=== PATIENT | male | born 1990 | race Caucasian/White ===

== ENCOUNTER 2019-12-01 13:24 | Inpatient (IN) | payer MEDICAID, OTHER ==
[~2019-12-01] VITALS: Ht 182.9 cm; Wt 52.5 kg
[~2019-12-01 13:24] MED LIST: ALBU17IN INH; AVEL1TAB3 PO; COMBAER6 INH; MENSTAB10 PO; PRAZ2CAP PO; SERO1TAB OR; SERO200T PO; VITATAB11 PO; ZOLO50TA OR; [UNRECOGNIZED DRUG - OTHER] PO
[2019-12-01] MEDS ORDERED: SUBO8MIS SL ×2 (13:53→17:33)
[2019-12-01 15:13] LABS: HEMATOCRIT 41.7 % (42.0-52.0); HEMOGLOBIN 13.5 g/dl (13.5-17.5); MEAN CORPUSCULAR HEMOGLOBIN 27.8 pg (27.0-33.0); MEAN CORPUSCULAR HGB CONC 32.4 g/dl (32.0-36.5); MEAN CORPUSCULAR VOLUME 85.8 fl (80.0-96.0); PLATELET COUNT, AUTOMATED 234 10^3/uL (150-450); RED BLOOD COUNT 4.86 10^6/uL (4.30-6.10)
[2019-12-01 15:40] LABS: AMPHETAMINES LEVEL URINE POSITIVE (NEGATIVE); BARBITURATES URINE NEGATIVE (NEGATIVE); BENZODIAZEPINES URINE NEGATIVE (NEGATIVE); CANNABINOIDS URINE POSITIVE (NEGATIVE); COCAINE METABOLITE URINE NEGATIVE (NEGATIVE); METHADONE URINE NEGATIVE (NEGATIVE); OPIATES URINE NEGATIVE (NEGATIVE); PHENCYCLIDINE URINE NEGATIVE (NEGATIVE)
[2019-12-01 15:49] LABS: ACETAMINOPHEN LEVEL < 2.0 UG/ML (10.0-30.0); ALBUMIN 4.3 GM/DL (3.2-5.2); ALT/SGPT 21 U/L (12-78); BILIRUBIN,DIRECT 0.4 MG/DL (0.0-0.2); BILIRUBIN,TOTAL 1.4 MG/DL (0.2-1.0); BLOOD UREA NITROGEN 21 MG/DL (7-18); CALCIUM LEVEL 9.2 MG/DL (8.5-10.1); CARBON DIOXIDE LEVEL 32 MEQ/L (21-32); CHLORIDE LEVEL 103 MEQ/L (98-107); CREATININE FOR GFR 1.01 MG/DL (0.70-1.30); ETHYL ALCOHOL (ETHANOL) < 0.003 % (0.000-0.010); GLOMERULAR FILTRATION RATE > 60.0 (>60); GLUCOSE, FASTING 134 MG/DL (70-100); POTASSIUM SERUM 4.2 MEQ/L (3.5-5.1); SALICYLATE LEVEL < 1.7 MG/DL (5.0-30.0); SODIUM LEVEL 139 MEQ/L (136-145); THYROID STIMULATING HORMONE 0.187 uIU/ML (0.358-3.740); TOTAL PROTEIN 7.8 GM/DL (6.4-8.2)
[2019-12-01] MEDS ORDERED: OLANZapine 5 MG TAB PO PRN (18:15)
[2019-12-01] MEDS ORDERED: QUEtiapine FUMARATE 50 MG TAB PO PRN (18:15)
[2019-12-01] MEDS ORDERED: MAALOX 30 ML SUSP *UDC PO PRN (18:15)
[2019-12-01] MEDS ORDERED: IBUPROFEN 400 MG TAB PO PRN (18:15)
[2019-12-01] MEDS ORDERED: MOM 30ML SUSPENSION UDC PO PRN (18:15)
[2019-12-01 20:26] VITALS: BP 108/58
[2019-12-01] MEDS: BUPRENORPHINE/NALOXONE 2-0.5MG SUBLINGUAL TABLET(SUBOXONE) SL SCH (21:00)
[2019-12-02 06:12] VITALS: BP 105/55
[2019-12-02] MEDS: BUPRENORPHINE/NALOXONE 8-2MG SUBLINGUAL TABLET(SUBOXONE) SL SCH (09:07)
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
[2019-12-02 16:24] VITALS: BP 95/51
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
[2019-12-02] MEDS: BUPRENORPHINE/NALOXONE 2-0.5MG SUBLINGUAL TABLET(SUBOXONE) SL SCH (20:15)
[2019-12-02] MEDS ORDERED: RAMELTEON 8 MG TAB (ROZEREM) PO SCH (21:00)
[2019-12-03 06:51] VITALS: BP 97/46
[2019-12-03] MEDS: BUPRENORPHINE/NALOXONE 8-2MG SUBLINGUAL TABLET(SUBOXONE) SL SCH (08:02)
[2019-12-03] MEDS ORDERED: SUBO8MIS SL ×3 (11:01→11:25)
[2019-12-03] MEDS ORDERED: SUBO4MIS SL (11:25)
--- NOTE | 2019-12-03 19:36 | MHDSPDOC ---
[facility] Discharge Summary Discharge Summary DATE OF ADMISSION: Dec 01, 2019 at 18:03 DATE OF DISCHARGE: Dec 03, 2019 at 14:10 Discharge Diagnoses Posttraumatic stress disorder. Stimulant use disorder. Cannabis use disorder. Opioid use disorder, in sustained remission. Other specified personality disorder: Mixed personality features. History of Present Illness Katia De is a 28-year-old man who presented to the ER after the patient's mother called [facility] out of concern for SI in the setting of substance use. On evaluation, Katia states that he was released from longterm in August after serving for 4 years. He has a longstanding and extensive substance use history as well as inpatient and outpatient psychiatric and substance use treatment. His first psychiatric contact was at the age of 13, and his first substance use treatment contact was in his late teens to early 20s. He is currently on Suboxone and has been initiated with [facility] for substance use treatment. He has recently been using cannabis and synthetic amphetamines/soumya. Katia states that it has been difficult adjusting to life outside of longterm, as while in longterm he had to constantly have his "head over my shoulder". He also reported having no work experience and that it has been difficult to find employment given his incarceration history. He also cites psychosocial stressors regarding living with his mother, who has her own psychiatric history. Additional stressors include cannabis and soumya use, which has led to mood dysregulation and paranoia. While Katia endorses chronic, passive SI, he denies making suicidal statements of an active quality to his mother. Consultants Routine medical screening. Treatment and Progress Katia was admitted on a 9.39 legal status. He elected to continue his outpatient medications of Suboxone and melatonin; however, melatonin was not available, so ramelteon was used. He reported improvement of affective symptoms and denied the presence of paranoia and suicidal ideation. He has outpatient follow up with [facility] and [facility], and he reported being ready to engage an outpatient treatment. Discharge Assessment On the day of discharge, Katia denied SI/HI/AVH/delusional thinking. He reported improvement in his symptoms and did not have safety concerns leaving the hospital and engaging in outpatient treatment. Due to relational concerns returning to his mother's house, he elected to coordinate with our project planner to go to [facility] for housing. The patient at the time of discharge did not meet criteria for involuntary admission/extension due to having a normal mental status exam, fair insight into the situation, They are engaged in the discharge process, as well as being friendly and amenable in behavioral control and havent been engaging in any observed concerning behavior or ideation recently. They decline voluntary extension/admission at this time and must be discharged in good dagoberto, as Im unable to make a case for holding the patient against their will. They may have historical risk factors of admissions and other interactions with psychiatry however, those are not modifiable from a clinical perspective. The patient will need to be discharged in good dagoberto. Physical Exam Vitals: See below General appearance: Appears staged age with good hygiene and grooming; dressed in seasonally-appropriate attire MSK: Normal Speech: WNL for rate, volume, fluency, and amount Thought process (logical vs. illogical or disorganized): Linear, organized and goal-directed. Thought content: No SI/HI/AVH/delusional thinking elicited. Judgement: fair Insight: Fair Mood: "good" Affect: Euthymic and reactive. Cognition: Grossly intact. Follow Up Appointments The discharge planners have worked to arrange outpatient follow-up. During the pre-discharge meeting, the patient was evaluated for further issues of lethality in order to address them fully before discharge. They worked on safety planning with the patient's family members to ensure that the patient will have a safe and effective discharge. Time Spent 30 minutes, with greater than 50% of time spent in counseling and coordination of care. Vital Signs/I&Os Vital Signs Date Time Temp Pulse Resp B/P (MAP) Pulse Ox O2 Delivery O2 Flow Rate FiO2 12/03/19 06:51 98.3 67 14 97/46 (63) 99 Room Air Medications Scheduled Buprenorphine HCl/Naloxone HCl (Suboxone 8 mg-2 mg Sl Film) 1 Each Film, 1 STRIP SL DAILY for opioid for 7 Days, #7 Buprenorphine HCl/Naloxone HCl (Suboxone 4 mg-1 mg Sl Film) 1 Each Film, 1 STRIP SL QHS for opioid for 7 Days, #7 Allergies Coded Allergies: Penicillins (Verified Allergy, Severe, hives, throat swelling, 12/01/19) GME ATTESTATION GME ATTESTATION My faculty preceptor for this patient encounter was physically present during the encounter and was fully available. All aspects of the patient interview, examination, medical decision making process, and medical care plan development were reviewed and approved by the faculty preceptor. The faculty preceptor is aware and concurs with the plan as stated in the body of this note and will attest to such by his/her cosignature. RICHARD CASTELLON MD Dec 03, 2019 19:36
== END 2019-12-03 14:10 | disposition home or self-care (01) | DRG 755 ==
LOC: M ED 13:24 → M ED INP 18:03 → M PSY 20:19
PROVIDERS: ADMIT Psychiatry & Neurology Psychiatry; ATTEND Psychiatry & Neurology Addiction Medicine
DX: F43.10 Post-traumatic stress disorder, unspecified (principal); F15.10 Other stimulant abuse, uncomplicated; F12.10 Cannabis abuse, uncomplicated; F10.11 Alcohol abuse, in remission; F17.200 Nicotine dependence, unspecified, uncomplicated; F60.89 Other specific personality disorders; F60.2 Antisocial personality disorder; Z62.810 Personal history of physical and sexual abuse in childhood; Z81.8 Family history of other mental and behavioral disorders; Z91.5 Personal history of self-harm; Z65.2 Problems related to release from prison; Z79.899 Other long term (current) drug therapy; Z88.0 Allergy status to penicillin

== ENCOUNTER 2019-12-14 14:37 | Emergency (ER) | payer MEDICAID, OTHER ==
[~2019-12-14] VITALS: Ht 182.9 cm; Wt 54.5 kg
[~2019-12-14 14:37] MED LIST changes: +SUBO4MIS SL; +SUBO8MIS SL
[2019-12-14 14:38] VITALS: BP 131/89
[2019-12-14 16:05] LABS: BASO # 0.1 10^3/uL (0.0-0.2); BASO % 0.6 % (0.0-1.0); EOS # 0.2 10^3/uL (0.0-0.5); EOS % 2.1 % (0.0-3.0); HEMATOCRIT 39.5 % (42.0-52.0); HEMOGLOBIN 12.8 g/dl (13.5-17.5); LYMPH # 3.5 10^3/uL (1.5-5.0); LYMPH % 30.7 % (24.0-44.0); MEAN CORPUSCULAR HEMOGLOBIN 27.9 pg (27.0-33.0); MEAN CORPUSCULAR HGB CONC 32.4 g/dl (32.0-36.5); MEAN CORPUSCULAR VOLUME 86.1 fl (80.0-96.0); MONO # 0.9 10^3/uL (0.0-0.8); MONO % 7.8 % (0.0-5.0); NEUTROPHILS # 6.7 10^3/uL (1.5-8.5); NEUTROPHILS % 58.5 % (36.0-66.0); PLATELET COUNT, AUTOMATED 257 10^3/uL (150-450); RED BLOOD COUNT 4.59 10^6/uL (4.30-6.10); WHITE BLOOD COUNT 11.5 10^3/uL (4.0-10.0)
[2019-12-14 16:24] LABS: ALT/SGPT 21 U/L (12-78); BILIRUBIN,DIRECT 0.1 MG/DL (0.0-0.2); BILIRUBIN,TOTAL 0.3 MG/DL (0.2-1.0); BLOOD UREA NITROGEN 18 MG/DL (7-18); CALCIUM LEVEL 8.6 MG/DL (8.5-10.1); CARBON DIOXIDE LEVEL 28 MEQ/L (21-32); CHLORIDE LEVEL 106 MEQ/L (98-107); CREATININE FOR GFR 0.97 MG/DL (0.70-1.30); GLOMERULAR FILTRATION RATE > 60.0 (>60); GLUCOSE, FASTING 100 MG/DL (70-100); SODIUM LEVEL 140 MEQ/L (136-145); TOTAL PROTEIN 7.2 GM/DL (6.4-8.2)
[2019-12-14 16:35] LABS: CHLAMYDIA DNA AMPLIFICATION POSITIVE (NEGATIVE); GC DNA AMPLIFICATION POSITIVE (NEGATIVE)
--- NOTE | 2019-12-14 16:36 | REP ---
Clinical: Hematuria. Technique: Axial noncontrast images from the lung bases to the pubic symphysis with coronal and sagittal re-formations. Findings: Liver, spleen, pancreas, gallbladder, bilateral adrenal glands and kidneys are relatively normal for noncontrast evaluation. No perinephric stranding, hydroureteronephrosis, intrarenal calculi are identified. The enteric system is without obstruction or obvious acute inflammatory process. Pelvis demonstrates partially collapsed bladder and age appropriate prostate/seminal vesicles. Multiple small calcifications within the pelvis likely represent phleboliths although distal ureteral calculus cannot definitively be excluded. No ascites. No free air. No obvious adenopathy. Musculoskeletal structures are intact. Lung bases are clear. Impression: 1. Limited examination due to the lack of intravenous contrast and paucity of intra peritoneal fat. 2. No obvious acute abdominopelvic pathology appreciated. 3. Normal appearance the bilateral kidneys without hydronephrosis, perinephric stranding, or nephrolithiasis. 4. Calcifications in the pelvis likely represent phleboliths and less likely distal ureteral calculus. Electronically Signed by Duncan Flannery MD 12/14/2019 04:28 P
[2019-12-14] MEDS ORDERED: AZITHROMYCIN 250MG TABLET PO ONE ×2 (16:45→17:00)
[2019-12-14] MEDS ORDERED: METOCLOPRAMIDE 10 MG TAB PO ONE (17:00)
[2019-12-14] MEDS ORDERED: GENTAMICIN SULF 80MG/2ML VIAL IM ONE (17:00)
== END 2019-12-14 17:21 | disposition home or self-care (01) ==
LOC: M ED 14:37
DX: A56.8 Sexually transmitted chlamydial infection of other sites (principal); A54.09 Other gonococcal infection of lower genitourinary tract; F31.9 Bipolar disorder, unspecified; F43.10 Post-traumatic stress disorder, unspecified; F19.10 Other psychoactive substance abuse, uncomplicated; F17.200 Nicotine dependence, unspecified, uncomplicated; Z88.0 Allergy status to penicillin; Z79.891 Long term (current) use of opiate analgesic
CPT/HCPCS: 74176; 80048; 80076; 81001; 85025; 87086; 87661; 96372; 99282; J1580

== ENCOUNTER → 2020-01-15 | Outpatient (CLI) | payer OTHER ==
[2020-01-15 12:06] LABS: APPEARANCE, URINE CLEAR (CLEAR); BACTERIA, URINE AUTO NEGATIVE (NEGATIVE); BILIRUBIN, URINE AUTO NEGATIVE (NEGATIVE); BLOOD, URINE BLOOD NEGATIVE (NEGATIVE); COLOR, URINE YELLOW (YELLOW); GLUCOSE, URINE (UA) AUTO NEGATIVE (NEGATIVE); KETONE, URINE AUTO NEGATIVE (NEGATIVE); LEUKOCYTE ESTERASE, URINE AUTO NEGATIVE (NEGATIVE); NITRITE, URINE AUTO NEGATIVE (NEGATIVE); PROTEIN, URINE AUTO NEGATIVE (NEGATIVE); RBC, URINE AUTO 0 /HPF (0-3); SPECIFIC GRAVITY URINE AUTO 1.011 (1.002-1.035); SQUAMOUS EPITHELIAL CELL UR AU 0 /HPF (0-6); UROBILINOGEN, URINE AUTO 0.2 mg/dL (0.0-2.0); WBC, URINE AUTO 2 /HPF (0-3)
[2020-01-15 12:13] LABS: HEMATOCRIT 41.8 % (42.0-52.0); HEMOGLOBIN 13.2 g/dl (13.5-17.5); MEAN CORPUSCULAR HEMOGLOBIN 27.2 pg (27.0-33.0); MEAN CORPUSCULAR HGB CONC 31.6 g/dl (32.0-36.5); PLATELET COUNT, AUTOMATED 221 10^3/uL (150-450); RED BLOOD COUNT 4.86 10^6/uL (4.30-6.10); WHITE BLOOD COUNT 11.2 10^3/uL (4.0-10.0)
[2020-01-15 13:01] LABS: ALBUMIN 4.3 GM/DL (3.2-5.2); ALT/SGPT 416 U/L (12-78); BILIRUBIN,DIRECT 0.3 MG/DL (0.0-0.2); BILIRUBIN,TOTAL 0.7 MG/DL (0.2-1.0); BLOOD UREA NITROGEN 8 MG/DL (7-18); CALCIUM LEVEL 9.6 MG/DL (8.5-10.1); CARBON DIOXIDE LEVEL 33 MEQ/L (21-32); CHLORIDE LEVEL 102 MEQ/L (98-107); CREATININE FOR GFR 0.91 MG/DL (0.70-1.30); GLOMERULAR FILTRATION RATE > 60.0 (>60); GLUCOSE, FASTING 109 MG/DL (70-100); POTASSIUM SERUM 4.4 MEQ/L (3.5-5.1); SODIUM LEVEL 139 MEQ/L (136-145); THYROXINE (T4) 18.1 UG/DL (4.5-12.0); TOTAL PROTEIN 7.8 GM/DL (6.4-8.2); TOTAL T3 180.8 NG/DL (60.0-181.0)
[2020-01-16 09:49] LABS: HEPATITIS C VIRUS ABY INDEX 0.2 INDEX (<0.8)
== END ==
LOC: M LAB 11:15
PROVIDERS: ATTEND Family Medicine Adult Medicine
DX: F11.20 Opioid dependence, uncomplicated (principal)

== ENCOUNTER 2021-01-15 14:35 | Inpatient (IN) | payer MEDICAID, OTHER, SELFPAY ==
[~2021-01-15] VITALS: Ht 182.9 cm; Wt 66.0 kg
--- NOTE | 2021-01-15 15:47 | REP ---
INDICATION: altered mental status COMPARISON: 12/29/2012 TECHNIQUE: Axial noncontrast images from the skull base to the vertex with coronal reformations. This CT examination was performed using the following dose reduction techniques: Automated exposure control, adjustment of mA and/or kv according to the patient's size, and use of iterative reconstruction technique. FINDINGS: The ventricles, sulci, and cisterns are normal in position and appearance. Martinez-white differentiation is maintained. No acute intracranial hemorrhage, mass/mass effect, pathology or trauma/injury. No evidence for acute infarction. No extra-axial fluid collection. Calvarium is intact. Paranasal sinuses and mastoid air cells are clear. IMPRESSION: Normal noncontrast head CT. No evidence for acute intracranial pathology or trauma/injury. <Electronically signed by Duncan Flannery > 01/15/21 [id number]
[2021-01-15 16:26] LABS: HEMATOCRIT 42.9 % (42.0-52.0); MEAN CORPUSCULAR HEMOGLOBIN 28.4 pg (27.0-33.0); MEAN CORPUSCULAR HGB CONC 32.6 g/dl (32.0-36.5); PLATELET COUNT, AUTOMATED 202 10^3/uL (150-450); RED BLOOD COUNT 4.93 10^6/uL (4.30-6.10); WHITE BLOOD COUNT 9.5 10^3/uL (4.0-10.0)
[2021-01-15 17:00] LABS: AMPHETAMINES LEVEL URINE POSITIVE (NEGATIVE); BARBITURATES URINE NEGATIVE (NEGATIVE); BENZODIAZEPINES URINE NEGATIVE (NEGATIVE); CANNABINOIDS URINE NEGATIVE (NEGATIVE); COCAINE METABOLITE URINE NEGATIVE (NEGATIVE); METHADONE URINE NEGATIVE (NEGATIVE); OPIATES URINE NEGATIVE (NEGATIVE); PHENCYCLIDINE URINE NEGATIVE (NEGATIVE)
[2021-01-15 17:04] LABS: ACETAMINOPHEN LEVEL < 2.0 UG/ML (10.0-30.0); ALBUMIN 4.8 GM/DL (3.2-5.2); ALT/SGPT 44 U/L (12-78); BILIRUBIN,DIRECT 0.2 MG/DL (0.0-0.2); BLOOD UREA NITROGEN 17 MG/DL (7-18); CALCIUM LEVEL 9.6 MG/DL (8.5-10.1); CARBON DIOXIDE LEVEL 29 MEQ/L (21-32); CHLORIDE LEVEL 106 MEQ/L (98-107); CREATININE FOR GFR 1.15 MG/DL (0.70-1.30); ETHYL ALCOHOL (ETHANOL) < 0.003 % (0.000-0.010); GLOMERULAR FILTRATION RATE > 60.0 (>60); GLUCOSE, FASTING 90 MG/DL (70-100); POTASSIUM SERUM 3.8 MEQ/L (3.5-5.1); SALICYLATE LEVEL < 1.7 MG/DL (5.0-30.0); SODIUM LEVEL 141 MEQ/L (136-145); TOTAL PROTEIN 8.1 GM/DL (6.4-8.2)
[2021-01-15] MEDS ORDERED: SERO1TAB2 PO (17:15)
[2021-01-15] MEDS ORDERED: IBUPROFEN 600MG TAB PO ONE (18:20)
[2021-01-15] MEDS ORDERED: QUEtiapine FUMARATE 100 MG TAB PO ONE (22:35)
--- NOTE | 2021-01-16 06:26 | ECGEPIP ---
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
--- NOTE | 2021-01-16 19:25 | ECGEPIP ---
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
[2021-01-17] MEDS ORDERED: NICOTINE 21MG/24HR 1 EA TRANSDERMAL TD ONE (15:55)
[2021-01-17] MEDS ORDERED: haloperidoL 5 MG TAB PO PRN (15:55)
[2021-01-17] MEDS ORDERED: MOM 30ML SUSPENSION UDC PO PRN (15:55)
[2021-01-17] MEDS ORDERED: ACETAMINOPHEN TAB 650MG DOSE (2X325MG) PO PRN (15:55)
[2021-01-17] MEDS ORDERED: traZODone 50 MG TAB PO PRN (15:55)
[2021-01-17] MEDS ORDERED: MAALOX 30 ML SUSP *UDC PO PRN (15:55)
[2021-01-17] MEDS ORDERED: hydrOXYzine 10 MG TAB PO PRN (15:55)
[2021-01-17] MEDS ORDERED: OLANZapine ORAL DISINTEGRATING TAB 5MG PO PRN (16:10)
[2021-01-17 16:14] LABS: RSV AMPLIFICATION NEGATIVE (NEGATIVE)
[2021-01-17] MEDS ORDERED: QUEtiapine FUMARATE 100 MG TAB PO SCH (21:00)
[2021-01-17] MEDS: OLANZapine ORAL DISINTEGRATING TAB 5MG PO SCH (21:05)
[2021-01-17 23:37] VITALS: BP 107/69
[2021-01-18] MEDS: OLANZapine ORAL DISINTEGRATING TAB 5MG PO SCH ×2 (09:00→20:07)
--- NOTE | 2021-01-18 12:21 | MHHPEPDOC ---
General Date Of Admission: Jan 17, 2021 Legal Status: 9.39 Chief Complaint " I was released from [facility] with no medicine and no place to stay.. History of Present Illness HISTORY OF THE PRESENT ILLNESS: Patient is a 30 -year-old , male, who [was recently released from [facility] after serving 10 months for probation violation. [facility] for armed robbery but also has other criminal history. He has long history of polysubstance abuse and claims that he was in Suboxone treatment before his incarceration. The patient stated that after his release, he was feeling quite hopeless, helpless, depressed and used methamphetamine and soumya and then became much more depressed and was having suicidal thoughts and came to emergency room seeking help. He is denying any clear suicidal intent or plan, but feels very hopeless, helpless and worthless and has no support system and has no housing and feels very fragile and unsafe. He has been taking Seroquel 300 mg at bedtime while incarcerated, but was discharged without any medicine. He is currently denying any hallucination, paranoia and denies any clear suicidal plan but feels very depressed and unsafe. He has no support system . Psychiatric Review of Systems Depression (2 or more weeks): depressed mood, feelings of worthlesness, suicidal thoughts Delaney (4 or more days of): denies Psychosis: denies Anxiety: situational anxiety, stressor related anxiety Past Psychiatric History Previous Psychiatric Diagnosis: Depression and polysubstance abuse . Previous Psychiatric Admissions: [Was at [facility] November 2019]. Suicide Attempts: [No history of suicidal attempt]. Psychiatric Follow-up: [Not been in any treatment]. Psychiatric medications: [Was taking Seroquel]. Past Medical History Medical Problems Denies any major medical issues Head Injury: No Seizures: No Hospitalizations: No Surgeries: No Family Medical/Psychiatric HX Medical Problems Noncontributory Psychiatric Disorders: No Addiction: No Suicide Attemps/Completions: No Addiction History amphetamines, opioids, methamphetamines, heroin Social History Childhood: [Born and charts done in [place]. Reports uneventful childhood. Abuse/Trauma: Denies any . Current Living Situation: [, Currently homeless]. Education: [High school]. Employment: [, Unemployed]. Social Support: [Has a cousin]. Legal: Extensive legal history including armed robbery and burglary, and currently on parole. Marital: , Never , single. She was born in [place], came to [facility] for 20 years ago.. She has no contact with his mother who is in [place] Mental Status Examination General Appearance: appears stated age Build: average Demeanor: average Eye Contact: average Activity: average Behavior: cooperative Speech: clear, spontaneous, normal volume Mood: depressed Mood Depressed and anxious primarily due to his current homelessness situation Affect: appropriate, congruent, anxious Thought Process: logical/linear Thought Content (Delusions): none reported Thought Content (Other): none reported, appropriate, coherent Thought Content (Aggressive): none reported Perception (Hallucinations): none reported Perception (Other): none reported Cognition (Impairment of): none reported Cognition(Intelligence Est.): average Oriented: Awake, Alert, Oriented times three Insight: fair Judgment: Fair Psychosis: Denies Diagnoses Adjustment disorder with mixed emotion, history of polysubstance abuse A-FIB/CHADSVASC A-FIB History Current/History of A-Fib/PAF?: No Current PO Anticoag Therapy: No Age/Risk Factor Scoring CHADSVASC: CHADSVASC Response (Comments) Value Gender Risk Factor Male 0 Hx of CHF No 0 Hx of HTN No 0 Hx of Stroke/TIA/or VTE No 0 Hx of Diabetes No 0 Hx of Vascular Disease No 0 Total 0 Treatment Treatment ordered: NONE Assessment Because another peer to be acutely psychotic or suicidal, but needs supportive therapy and safe discharge plan Initial Treatment Plan 1. Patient was admitted on a 9.39 status. 2. Complete history was obtained. 3. With patients permission, family will be contacted and database will be expanded. 4. Patients medication regimen will be reviewed and changed accordingly. 5. Patient will be provided with protected environment. 6. Patient will be treated with individual, group, and milieu therapies. 7. Patient will receive supportive psych-education. 8. Discharge planning will commence immediately. 9. Outpatient follow-up treatment will be strongly recommended. 10. The initial treatment plan will focus initially on: * Depression. * Risk for suicide. ESTIMATED LENGTH OF STAY: 3-5 DAYS. TIME SPENT COUNSELING AND COORDINATING INITIAL CARE: 45 minutes. 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 Jan 18, 2021 12:21
[2021-01-18 16:04] VITALS: BP 128/78
--- NOTE | 2021-01-18 19:31 | HPEPDOC ---
General Date of Admission Jan 17, 2021 at 15:51 Date of Service: Jan 18, 2021 Attending Physician: MUSTAPHA CARLSON MD Chief Complaint The patient is a 30-year-old male admitted with a reason for visit of Unspecified Mood Do. Source: Patient Exam Limitations: No limitations History of Present Illness 30 yo M with a history of PSUD with heroine and recently with mollie who was brought in for suicidal ideation and worsening depression i/s/o using meth and mollie 1d [facility] and now admitted to the [facility] after ED medical evaluation was grossly unremarkable. Medicine is now consulted to H&P. He denies recent physical illness and has no chronic medical conditions. 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 Allergies Coded Allergies: Penicillins (Verified Allergy, Severe, hives, throat swelling, 12/01/19) Past Medical History Medical History polysubstance use disorder Surgical History N/A Family History Significant Family History: No pertinent family hx Social History * Smoker: current smoker Alcohol: Denies Drugs: heroin, IV drug use Recent Travel/Sick Contacts: Denies: Recent travel, Recent sick contacts Psychosocial History: Bipolar, Depression A-FIB/CHADSVASC A-FIB History Current/History of A-Fib/PAF?: No Current PO Anticoag Therapy: No Age/Risk Factor Scoring CHADSVASC: CHADSVASC Response (Comments) Value Gender Risk Factor Male 0 Hx of CHF No 0 Hx of HTN No 0 Hx of Stroke/TIA/or VTE No 0 Hx of Diabetes No 0 Hx of Vascular Disease No 0 Total 0 Treatment Treatment ordered: NONE Reason Anticoagulant not given: Not indicated/[id number] Review of Systems Constitutional: Denies: Chills, Fever, Night Sweats Eyes: Denies: Pain, Vision change ENT: Denies: Head Aches, Ear Pain, Dysphagia Skin: Denies: Rash, Lesions, Breakdown Pulmonary: Denies: Dyspnea, Cough Cardiovascular: Denies: Chest Pain, Palpitations, Orthopnea, Paroxysmal Noc. Dyspnea, Lt Headedness Gastrointestinal: Denies: Nausea, Vomiting, Abdominal Pain, Diarrhea Genitourinary: Denies: Dysuria, Frequency, Incontinence, Retention Hematologic: Denies: Bruising, Bleeding Excessively Endocrine: Denies: Polydipsia, Polyphagia, Polyuria, Heat Intolerance, Cold Intolerance, Other Endocrine Sx Musculoskeletal: Denies: Neck Pain, Back Pain, Joint Pain, Muscle Pain, Spasms Neurological: Denies: Weakness, Numbness, Change in speech, Confusion Psych: Reports: Anxiety, Depression; Denies: Thoughts of Self Harm Physical Examination General Exam: Positive: Alert, No Acute Distress Eye Exam: Positive: PERRLA, Conjunctiva & lids normal, EOMI; Negative: Sclera icteric ENT Exam: Positive: Atraumatic, Mucous membr. moist/pink, Pharynx Normal Neck Exam: Positive: Supple; Negative: JVD, thyromegaly Chest Exam: Positive: Clear to auscultation, Normal air movement Heart Exam: Positive: Rate Normal, Regular Rhythm, Normal S1, Normal S2; Negative: Murmurs, Rubs Abdomen Exam: Positive: Normal bowel sounds, Soft; Negative: Tenderness, Hepatospenomegaly Extremity Exam: Positive: Normal pulses; Negative: Clubbing, Cyanosis, Edema Skin Exam: Positive: Nl turgor and temperature; Negative: Breakdown, Lesion Neuro Exam: Positive: Normal Gait, Normal Speech, Cranial Nerves 3-12 NL, Reflexes 2+ Psych Exam: Positive: Mental status NL, Mood NL, Memory Intact, Oriented x 3 Vital Signs Vital Signs Date Time Temp Pulse Resp B/P (MAP) Pulse Ox O2 Delivery O2 Flow Rate FiO2 01/18/21 16:04 97.7 89 18 128/78 (95) 98 Room Air Assessment/Plan 30 yo M with a history of PSUD with heroine and recently with mollie who was brought in suicidal ideation and worsening depressed mood i/s/o using meth and mollie 1d after [facility] and now admitted to the [facility] after ED medical evaluation was grossly unremarkable. Depression with suicidal ideation: -plan per primary psych team PSUD: -plan per primary psych team Medicine will sign off at this time. Plan / VTE VTE Prophylaxis Ordered?: No VTE Exclusion Mechanical Proph: Low Risk for VTE VTE Exclusion Pharmacological: At Low Risk for VTE MUSTAPHA CARLSON MD Jan 18, 2021 19:30
[2021-01-18] MEDS: QUEtiapine FUMARATE 100 MG TAB PO SCH (20:06)
[2021-01-19 06:54] VITALS: BP 125/59
[2021-01-19] MEDS: OLANZapine ORAL DISINTEGRATING TAB 5MG PO SCH ×2 (09:00→21:01)
--- NOTE | 2021-01-19 10:36 | MHIPNPDOC ---
[facility] Progress Note Progress Note DATE OF SERVICE: 01/19/21 He took his Seroquel and slept very well. Reports that he is feeling a little bit rested. He has no new complaints and no new issues except that he is feeling very hopeless, helpless, has no housing and has no support system, has no financial or resource. He is in no acute physical distress. He is not showing any acting out behavior and denies any suicidal thoughts. He remains depressed, primarily due to his current situation and needs some type of supportive structure with a safe discharge plan. HISTORY: . VITAL SIGNS: See below. NEW TEST RESULTS: . CURRENT MEDICATIONS: See below. MENTAL STATUS EXAMINATION: Patient is a 30-year old male, who is , cooperative. Speech: Is rational, coherent. Language skills are good. Thought processes including: Relevant. Thought content: Most psychotic symptoms. Abstract reasoning, and computation: Fair. Description of associations: , Organized. Description of abnormal or psychotic thoughts: None. Judgment: Fair. Insight: fair. ]. Orientation: , Oriented. Recent and remote memory: Fair. Attention span and concentration: Fair. Language: . Fund of knowledge: . Mood: Moderately depressed. Affect: , Appropriate. DIAGNOSES: 1. Depressive disorder, NOS. 2. ., Polysubstance abuse 3. . ASSESSMENT:In good control and does not appear to be acutely suicidal MANAGEMENT PLAN: Needs safe discharge plan. TIME SPENT: 15 minutes. Vital Signs Vital Signs Date Time Temp Pulse Resp B/P (MAP) Pulse Ox O2 Delivery O2 Flow Rate FiO2 01/19/21 06:54 98.1 80 20 125/59 (81) 95 Room Air Current Medications Current Medications Medications (Trade) Dose Ordered Sig/Jareth Route PRN Reason Start Time Stop Time Status Last Admin Dose Admin Acetaminophen (Tylenol Tab) 650 mg Q6HP PRN PO HEADACHE or DISCOMFORT 01/17/21 15:55 Al Hydrox/Mg Hydrox/Simethicone (Mylanta) 30 ml Q4HP PRN PO HEARTBURN/INDIGESTION 01/17/21 15:55 Haloperidol (Haldol) 5 mg BIDP PRN PO ANXIETY/AGITATION 01/17/21 15:55 01/17/21 16:15 DC Home Med (Med Rec Complete!) ASDIRECTED XX 01/15/21 17:15 01/15/21 17:28 DC Hydroxyzine HCl (Atarax) 10 mg Q6HP PRN PO ANXIETY/AGITATION 01/17/21 15:55 Magnesium Hydroxide (Milk Of Magnesia) 30 ml DAILYPRN PRN PO CONSTIPATION 01/17/21 15:55 Miscellaneous (Unresolved Patient Own Med Order) SEE LABEL COMMENTS DAILY XX 01/17/21 09:00 01/18/21 11:28 DC Olanzapine (ZyPREXA ZYDIS) 5 mg BID PO 01/17/21 21:00 01/17/21 21:05 Olanzapine (ZyPREXA ZYDIS) 5 mg BIDP PRN PO ANXIETY/AGITATION 01/17/21 16:10 Quetiapine Fumarate (SEROquel) 300 mg QHS PO 01/17/21 21:00 01/17/21 22:46 DC 01/17/21 21:06 Quetiapine Fumarate (SEROquel) 300 mg QHS PO 01/18/21 21:00 01/18/21 20:06 Trazodone HCl (Desyrel) 50 mg QHSP PRN PO INSOMNIA 01/17/21 15:55 Allergies Coded Allergies: Penicillins (Verified Allergy, Severe, hives, throat swelling, 12/01/19) SUKHJINDER MEJÍA M.D. Jan 19, 2021 10:36
[2021-01-19 16:02] VITALS: BP 110/62
[2021-01-19] MEDS: QUEtiapine FUMARATE 100 MG TAB PO SCH (21:01)
[2021-01-20 06:43] VITALS: BP 124/65
[2021-01-20] MEDS: OLANZapine ORAL DISINTEGRATING TAB 5MG PO SCH ×2 (09:23→20:31)
--- NOTE | 2021-01-20 11:00 | MHIPNPDOC ---
[facility] Progress Note Progress Note DATE OF SERVICE: 01/20/21 The patient reports feeling better and has no new complaints. He is very withdrawn and spending most of time in bed but appears not as anxious, irritable or preoccupied. He states that he feels overly sedated with the Seroquel 300 mg and wants to try less amount. He also has a friend that he can stay with and is asking if he can be discharged tomorrow. He is not showing any gross paranoid ideas and denies any suicidal thoughts and is maintaining very good control. HISTORY: . VITAL SIGNS: See below. NEW TEST RESULTS: . CURRENT MEDICATIONS: See below. MENTAL STATUS EXAMINATION: Patient is a 30-year old male, who is in no acute distress. Speech: Is relevant, rational. Language skills are good,. Thought processes including: Relevant, but not very productive . Thought content: Denies any paranoia and denies any suicidal thoughts. Abstract reasoning, and computation: Fair. Description of associations: , Organized. Description of abnormal or psychotic thoughts: None. Judgment: Fair. Insight: fair. . Orientation: , Oriented. Recent and remote memory: Good. Attention span and concentration: Fair. Language: . Fund of knowledge: Average. Mood: Reports feeling better. Affect: blunted but appropriate. DIAGNOSES: 1. . Depressive disorder, NOS 2. . Polysubstance abuse 3. . ASSESSMENT:[Maintaining good control and denies any suicidal thoughts] MANAGEMENT PLAN: [If housing]. Is available. We will discharge him tomorrow TIME SPENT: [15] minutes. Vital Signs Vital Signs Date Time Temp Pulse Resp B/P (MAP) Pulse Ox O2 Delivery O2 Flow Rate FiO2 01/20/21 06:43 98.7 64 16 124/65 (84) 98 Room Air Current Medications Current Medications Medications (Trade) Dose Ordered Sig/Jareth Route PRN Reason Start Time Stop Time Status Last Admin Dose Admin Acetaminophen (Tylenol Tab) 650 mg Q6HP PRN PO HEADACHE or DISCOMFORT 01/17/21 15:55 Al Hydrox/Mg Hydrox/Simethicone (Mylanta) 30 ml Q4HP PRN PO HEARTBURN/INDIGESTION 01/17/21 15:55 Haloperidol (Haldol) 5 mg BIDP PRN PO ANXIETY/AGITATION 01/17/21 15:55 01/17/21 16:15 DC Home Med (Med Rec Complete!) ASDIRECTED XX 01/15/21 17:15 01/15/21 17:28 DC Hydroxyzine HCl (Atarax) 10 mg Q6HP PRN PO ANXIETY/AGITATION 01/17/21 15:55 Magnesium Hydroxide (Milk Of Magnesia) 30 ml DAILYPRN PRN PO CONSTIPATION 01/17/21 15:55 Miscellaneous (Unresolved Patient Own Med Order) SEE LABEL COMMENTS DAILY XX 01/17/21 09:00 01/18/21 11:28 DC Olanzapine (ZyPREXA ZYDIS) 5 mg BID PO 01/17/21 21:00 01/20/21 09:23 Olanzapine (ZyPREXA ZYDIS) 5 mg BIDP PRN PO ANXIETY/AGITATION 01/17/21 16:10 Quetiapine Fumarate (SEROquel) 200 mg QHS PO 01/20/21 21:00 Quetiapine Fumarate (SEROquel) 300 mg QHS PO 01/17/21 21:00 01/17/21 22:46 DC 01/17/21 21:06 Quetiapine Fumarate (SEROquel) 300 mg QHS PO 01/18/21 21:00 01/20/21 09:15 DC 01/19/21 21:01 Trazodone HCl (Desyrel) 50 mg QHSP PRN PO INSOMNIA 01/17/21 15:55 Allergies Coded Allergies: Penicillins (Verified Allergy, Severe, hives, throat swelling, 12/01/19) SUKHJINDER MEJÍA M.D. Jan 20, 2021 11:00
[2021-01-20 16:09] VITALS: BP 125/71
[2021-01-20] MEDS ORDERED: QUEtiapine FUMARATE 200 MG TAB PO SCH (21:00)
[2021-01-21 06:00] VITALS: BP 111/56
[2021-01-21] MEDS: OLANZapine ORAL DISINTEGRATING TAB 5MG PO SCH (08:29)
[2021-01-21] MEDS ORDERED: QUET200T2 PO (08:35)
--- NOTE | 2021-01-21 08:44 | MHDSPDOC ---
[facility] Discharge Summary Discharge Summary DATE OF ADMISSION: Jan 17, 2021 at 15:51 DATE OF DISCHARGE: 01/21/2021 DISCHARGE DIAGNOSES: 1. . Adjustment disorder with mixed emotion 2. ., Polysubstance abuse REASON FOR ADMISSION: 30-year-old man who [facility] Admitted to due to being homeless, and all of his medicine and feeling depressed and had vague suicidal thoughts. He has extensive history of polysubstance abuse and relapsed with using methamphetamine after his release. He denied any psychotic symptoms but reports feeling hopeless, worthless and depressed over his current situation. CONSULTANTS INVOLVED: TREATMENT AND PROGRESS ON THE UNIT : [. He was seen for daily supportive therapy and restarted on Seroquel 300 mg at bedtime. He remained in good control did not have any acute withdrawal symptoms and didn't have any other complaints. He denies any suicidal thoughts and was feeling oversedated with his medication and the Seroquel was reduced to 200 mg with no complaint of side effect. He is reporting that he secured housing with his cousin and is feeling much more hopeful and asking for discharge. HOSPITAL COURSE: . He remained somewhat guarded and withdrawn, but in no acute distress and didn't show any suicidal or aggressive behavior. He was eating, sleeping well , continued to deny any suicidal thoughts and pleasant and cooperative on approach, and reports feeling much more hopeful. DISCHARGE ASSESSMENT: Improved, stable and not suicidal MENTAL STATUS EXAMINATION ON DISCHARGE: Patient is a 30-year old male, who is , cooperative. Speech is , not very productive but rational, coherent. Language skills are good. Thought processes including: Relevant. Thought content: Denies any suicidal or aggressive thoughts. Abstract reasoning, and computation: Fair. Description of associations: , Organized. Description of abnormal or psychotic thoughts: None. Judgment: Fair. Insight: Fair. Orientation to well oriented . Recent and remote memory: Good. Attention span and concentration: fair. Language: . Fund of knowledge: Average. Mood: Euthymic. Affect: , Appropriate. MEDICATIONS ON DISCHARGE: - for ., Seroquel 200 mg at bedtime for 7 days with 3 refills - for . - for . PLAN/FOLLOWUP ARRANGEMENTS: Arranged by the senior buyer planner. The amount of time spent in the coordination of care for this patient was approximately 35 minutes. ETOH/Disorder Med Rx ETOH/DRUG DISORDER RX: N/A Vital Signs/I&Os Vital Signs Date Time Temp Pulse Resp B/P (MAP) Pulse Ox O2 Delivery O2 Flow Rate FiO2 01/20/21 16:09 97.8 88 16 125/71 (89) 97 Room Air Medications Scheduled Quetiapine Fumarate (Quetiapine Fumarate) 200 Mg Tablet, 200 MG PO QHS for mood for 7 Days, #7 Allergies Coded Allergies: Penicillins (Verified Allergy, Severe, hives, throat swelling, 12/01/19) SUKHJINDER MEJÍA M.D. Jan 21, 2021 08:44
== END 2021-01-21 10:40 | disposition home or self-care (01) | DRG 755 ==
LOC: M ED 14:35 → M ED INP 01-17 15:51 → M PSY 01-17 22:41
PROVIDERS: ADMIT Psychiatry & Neurology Psychiatry; ATTEND Psychiatry & Neurology Psychiatry
DX: F43.23 Adjustment disorder with mixed anxiety and depressed mood (principal); F15.10 Other stimulant abuse, uncomplicated; F17.210 Nicotine dependence, cigarettes, uncomplicated; R45.851 Suicidal ideations; Z59.0 Homelessness; Z56.0 Unemployment, unspecified; Z20.822 Contact with and (suspected) exposure to COVID-19